=== PATIENT | female | born 1965 | race African-American/Black ===

== ENCOUNTER 2017-12-12 12:31 | Observation (INO) | payer BC, SELFPAY ==
[2017-12-12 13:34] LABS: Mean Corpuscular HGB CONC 32.7 g/dL (32.0-36.0); Mean Corpuscular Hemoglobin 35.9 pg (27.0-31.0); Mean Platelet Volume 7.5 fL (7.4-10.4); Platelet Count 230 thou/uL (130-400); RBC Distribution Width 11.7 % (11.5-14.5); White Blood Cell (WBC) Count 5.4 thou/uL (4.8-10.8)
[2017-12-12 13:38] LABS: Eosinophils 4 % (0-10); Lymphocytes 15 % (21-51); MDiff Complete? YES; Macrocytosis SLIGHT = 6-15 cells (100X) (0-5/hpf); Monocytes 5 % (0-10); Neutrophil 70 % (42-75); PLT Morphology Comment Appears Adequate; Reactive Lymphocytes 6 % (0-10)
[2017-12-12 13:40] LABS: ALT (SGPT) 16 U/L (8-55); AST (SGOT) 21 U/L (5-34); Albumin 4.5 g/dL (3.5-5.0); Alkaline Phosphatase 43 U/L (40-150); Anion Gap 14 mmol/L (10-20); BUN (Urea Nitrogen) 14 mg/dL (9.8-20.1); Bilirubin, Total 0.7 mg/dL (0.2-1.2); CK (CPK) 378 U/L (29-168); Calc. Creatinine Clearance 0 mL/min (70-130); Calcium 9.2 mg/dL (7.8-10.44); Carbon Dioxide 22 mmol/L (22-29); Chloride 109 mmol/L (98-107); Estimated GFR-MDRD 68; Glucose 91 mg/dL (70-105); Potassium 4.2 mmol/L (3.5-5.1); Protein, Total 7.5 g/dL (6.0-8.3); Sodium 141 mmol/L (136-145)
[2017-12-12 13:41] LABS: CKMB 5.5 ng/mL (0-6.6); Troponin I Less than 0.010 ng/mL (< 0.028)
[2017-12-12] MEDS ORDERED: Nitroglycerin 2% Ointment 1 INCH/1 GM Packet ONE (14:46)
--- NOTE | 2017-12-12 15:09 | RAD ---
RADIOGRAPH CHEST 1 VIEW: HISTORY: 52-year-old female with dyspnea and chest pain. FINDINGS: There are no air space densities, pulmonary edema, pneumothorax, or cardiomegaly. The lateral costop hrenic angles are sharp. IMPRESSION: No acute cardiopulmonary findings. jn [] POS: SHERIE
[2017-12-12 15:18] LABS: Bilirubin Negative (Negative); Blood, Urine Negative (Negative); Clarity CLEAR (Clear); Glucose, Urine (Dipstick) Negative (Negative); Leukocyte Trace (Negative); Nitrite Negative (Negative); Protein, Urine (Dipstick) Negative (Neg-Trace); Specific Gravity, Urine 1.028 (1.002-1.036)
[2017-12-12 15:20] LABS: Bacteria/HPF None Seen HPF (None Seen); Hyaline Casts/LPF 0-3 HYALINE CAST LPF (0-3 Hyaline); Pathc Cast-AUWi Flag 0.27 (0-2.49); WBC/HPF 0-3 HPF (0-3)
[2017-12-12] MEDS ORDERED: Mag-Al 1200 mg/1200 mg/30 ML UDCUP PO PRN (15:56)
[2017-12-12] MEDS ORDERED: Ondansetron ODT 4 MG TAB PO PRN (15:56)
[2017-12-12] MEDS ORDERED: Ondansetron HCl/PF 4 MG/2 ML Vial IVP PRN (15:56)
[2017-12-12] MEDS ORDERED: Nitroglycerin 0.4 MG TAB (25 Tab Bottle) PO PRN (15:56)
[2017-12-12] MEDS ORDERED: hydrALAZINE 20 MG/ML VIAL SLOW IVP PRN (15:56)
[2017-12-12] MEDS ORDERED: Acetaminophen 325 MG TAB PO PRN (15:56)
[2017-12-12 15:58] VITALS: BMI 41.3
--- NOTE | 2017-12-12 16:54 | HP ---
The patient is currently in between primary care physician. CHIEF COMPLAINT: Chest pain. HISTORY OF PRESENT ILLNESS: Ms. Hazel is a pleasant 52-year-old female that has a history of rheuma toid arthritis and asthma. She was in her usual state of health until this morning. She says that a bout 7:00 a.m., she threw up and had a bad headache and then she started feeling some sharp pain in h er chest, which then radiated into her left arm. She also felt some tightness in her arm as well. S he says that the pain felt like a sharp warm feeling in her chest and it did radiate to the shoulder and her neck. She says that in the morning it was about 10/10, but now she rates it at about 7/10. She says that she did get some shortness of breath associated with it as well as feeling a bit dizzy and lightheaded, and this is the reason that she came to the ER for evaluation. She also says that s he has been having more shortness of breath recently. She says that she also has sleep propped up at about 40-45 degrees and she says she has been like this for the last couple of years, but lately it has been a little bit worse, and she also says that she occasionally will have to wake up through the night with shortness of breath, but she attributes this to asthma and has to use her "breathing pump ". She also notes some increasing swelling in her legs off and on. The patient also says that she h as never had a stress test. REVIEW OF SYSTEMS: HEENT: She had a headache this morning. She does admit to some sinus drainage and sore throat as we ll as some runny nose. CONSTITUTIONAL: She denies any fevers, chills, night sweats or weight loss. PULMONARY: She has had some dry cough off and on, nonproductive. No hemoptysis. CARDIOVASCULAR: As the history of present illness. GASTROINTESTINAL: She has had the nausea and vomiting this morning. No significant change in bowel other than occasionally constipation alternating with diarrhea. She did say that she has had a colon oscopy about a year ago and they found 1 polyp. GENITOURINARY: No urinary frequency, hematuria, or hesitancy. NEUROLOGIC: No focal weakness or numbness. No seizures. PSYCHIATRIC: No symptoms of anxiety or depression. MUSCULOSKELETAL: No muscle pain, weakness, or joint pains. SKIN AND INTEGUMENT: No skin changes. No rash. PAST MEDICAL HISTORY: Significant for rheumatoid arthritis, asthma, vertigo, and osteoarthritis. ALLERGIES: PENICILLIN. PAST SURGICAL HISTORY: She has had a lipoma removal from her back, hysterectomy, carpal tunnel surge ry, bilateral tubal ligation, ear surgery on the left ear. SOCIAL HISTORY: She is . She has 5 children. 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 She is a nonsmoker, occasionally drinks. She is . FAMILY HISTORY: Significant for diabetes in her mother as well as heart disease, but she is not sure what type of heart disease and systemic lupus in her sister. CURRENT MEDICATIONS: Include Tylenol #3 with codeine, Patanol eyedrops twice a day, albuterol inhale r 2 puffs 4 times a day, Toradol 10 mg as needed for pain, Ultram 50 mg q.6 as needed. PHYSICAL EXAMINATION: GENERAL: She is alert and oriented. She appears to be in no acute distress. VITAL SIGNS: Blood pressure was 121/68, heart rate 98, respiratory rate of 18, temperature is 98.5. HEENT: Pupils are equal, round, and reactive. Extraocular muscles are intact. Sclerae are anicteri c. Throat: No erythema, no exudates. NECK: There is no adenopathy, no bruits, no jugular venous distention. LUNGS: Clear to auscultation. There is no wheezing or rales. CARDIOVASCULAR: She has a normal S1 and S2. I do not appreciate an S3 or S4. No murmurs, clicks or rubs. ABDOMEN: Obese, it is soft, it is nontender, nondistended. There is no appreciable organomegaly. N o rebound or guarding. EXTREMITIES: She has got trace pedal edema bilaterally. Good dorsalis pedis pulses. SKIN/INTEGUMENT: There is no rash. NEUROLOGICALLY: Exam is grossly nonfocal. SIGNIFICANT LABORATORY AND X-RAY FINDINGS: On her EKG, it was sinus rhythm, the rate was 98. There were some nonspecific ST wave changes. LABORATORY DATA: Her white blood cell count was 5.4, hemoglobin 14, hematocrit is 42.9, platelet cou nt is 230. Sodium 141, potassium 4.2, chloride is 109, CO2 is 22, BUN of 14, creatinine 1.03, glucos e is 91. ASSESSMENT AND PLAN: This is a very pleasant 52-year-old female that presents to the emergency room with chest pain, the characteristics of which are bit atypical. As the pain started at rest and has been fairly constant throughout most of the day today. The patient's says who is at the beds [place] says that because of her rheumatoid arthritis, she typically has to use her arms a lot in order t o transfer from a seated position to standing and then also at work she admits to having to carry hea vy buckets full of dishes. I suspect that her chest pain was in some way is reproducible on exam. I suspect that some of her symptoms could be related to musculoskeletal strain. However, she has wihco r had a stress test in the past and this is her second hospital admission for similar complaints (the last being approximately 14 months ago). We will go ahead and place her in observation. Continue t o trend her cardiac enzymes, monitor her blood pressure, check her lipid panel, and she will get a nu clear stress test in the a.m.
[2017-12-12 16:56] LABS: Troponin I Less than 0.010 ng/mL (< 0.028)
[2017-12-12 19:41] LABS: Troponin I Less than 0.010 ng/mL (< 0.028)
[2017-12-12] MEDS: Famotidine 20 MG TAB PO SCH (20:51)
[2017-12-12] MEDS: Nitroglycerin 2% Ointment 1 INCH/1 GM Packet TOP SCH (20:58)
[2017-12-13 04:15] VITALS: BP 132/75; TEMP 98.5
[2017-12-13 04:47] LABS: #Eosinphils 0.1 thou/uL (0.0-0.7); #Lymphocytes 1.7 thou/uL (1.20-3.40); #Monocytes 0.3 thou/uL (0.11-0.59); #Neutrophils 2.4 thou/uL (1.40-6.50); %Basophils 0.9 % (0.0-1.0); %Eosinophils 2.4 % (0.0-10.0); %Lymphocytes 37.5 % (21.0-51.0); %Monocytes 5.9 % (0.0-10.0); %Neutrophils 53.3 % (42.0-75.0); Mean Corpuscular Hemoglobin 36.9 pg (27.0-31.0); Mean Platelet Volume 7.6 fL (7.4-10.4); Platelet Count 201 thou/uL (130-400); RBC Distribution Width 11.7 % (11.5-14.5); Red Blood Cell (RBC) Count 3.51 mill/uL (4.20-5.40); White Blood Cell (WBC) Count 4.6 thou/uL (4.8-10.8)
[2017-12-13] MEDS: Nitroglycerin 2% Ointment 1 INCH/1 GM Packet TOP SCH ×2 (04:58→15:32)
[2017-12-13 05:09] LABS: Anion Gap 12 mmol/L (10-20); BUN (Urea Nitrogen) 18 mg/dL (9.8-20.1); Calc. Creatinine Clearance 154 mL/min (70-130); Calcium 9.3 mg/dL (7.8-10.44); Carbon Dioxide 25 mmol/L (22-29); Cardiac Risk 3.2 (Less than 4.5); Chloride 107 mmol/L (98-107); Cholesterol 163 mg/dl (< 200 Desired); Estimated GFR-MDRD 87; Glucose 92 mg/dL (70-105); HDL Cholesterol 51 mg/dL (>60 Neg Risk); LDL Cholesterol, Calculated 99 mg/dL; Potassium 3.7 mmol/L (3.5-5.1); Sodium 140 mmol/L (136-145); Triglycerides 63 mg/dL (Less than 150)
[2017-12-13] MEDS: Famotidine 20 MG TAB PO SCH (08:38)
[2017-12-13] MEDS ORDERED: Aspirin 325 MG TAB PO SCH (09:00)
[2017-12-13] MEDS ORDERED: Enoxaparin Sodium 40 MG/0.4 ML SYRINGE SC SCH (09:00)
[2017-12-13] MEDS ORDERED: Regadenoson 0.4 MG/5 ML SYRINGE ONE (09:47)
--- NOTE | 2017-12-13 14:04 | NM ---
NUCLEAR MEDICINE CARDIAC MYOCARDIAL PERFUSION SPECT EJECTION FRACTION STUDY WALL MOTION CINE: HISTORY: 52-year-old female with acute chest. TECHNIQUE: Number of days: 1 Rest study: Tc99m sestamibi (Cardiolite) dose: Not given. Stress only study. Pharmacologic stress: Lexiscan dose: 0.4 mg Stress study: Tc99m sestamibi (Cardiolite) dose: 28.3 mCi FINDINGS: Radiopharmaceutical uptake is homogeneous throughout the left ventricular myocardium, without any per fusion defects. EJECTION FRACTION STUDY EF = 52% WALL MOTION CINE Normal. IMPRESSION: Normal. jarocho POS: SHERIE
--- NOTE | 2017-12-13 14:38 | PDOC.PN ---
- Subjective Encounter Start Date: 12/13/17 Encounter Start Time: 14:36 Ms. Hazel was seen in follow-up. She is feeling better, no complaints. - Objective Resuscitation Status: Resuscitation Status FULL:Full Resuscitation MAR Reviewed: Yes Vital Signs & Weight: Vital Signs (12 hours) Temp Pulse Resp BP Pulse Ox 12/13/17 07:45 98.5 F 72 14 12/13/17 07:09 98.4 F 20 12/13/17 04:08 98.5 F 72 14 132/75 95 Weight Weight 277 lb I&O: 12/12/17 12/13/17 12/14/17 06:59 06:59 06:59 Intake Total 710 Output Total 425 500 Balance 285 -500 Result Diagrams: 12/13/17 04:09 12/13/17 04:09 Phys Exam - Physical Examination HEENT: PERRLA Respiratory: no wheezing, no rales, no rhonchi, clear to auscultation bilateral Cardiovascular: RRR, no significant murmur Gastrointestinal: soft, non-tender, positive bowel sounds Musculoskeletal: no edema Dx/Plan (1) Chest pain Code(s): R07.9 - CHEST PAIN, UNSPECIFIED Status: Acute - Plan * Chest pain- - musculoskeletal in origin * Stable for discharge home.
--- NOTE | 2017-12-13 23:51 | DIS ---
PRIMARY CARE PHYSICIAN: She does not have a primary care doctor. DATE OF ADMISSION: 12/12/2017 DATE OF DISCHARGE: 12/13/2017 DISCHARGE DISPOSITION: Home. PRIMARY DISCHARGE DIAGNOSES: 1. Chest pain, probable musculoskeletal in origin. 2. History of rheumatoid arthritis. 3. Asthma. 4. Vertigo. DISCHARGE MEDICATIONS: The patient did not list any medications prior to admission. None will be pr escribed. CODE STATUS: FULL CODE. ALLERGIES: PENICILLIN. PROCEDURES DONE DURING THE ADMISSION: The patient had a nuclear stress test, which was negative. HOSPITAL COURSE: Ms. Hazel is a pleasant 52-year-old female, who presented to the emergency room wi complaints of chest pain, which radiated into her left arm and shoulder and neck. Some of the sym ptoms are reproducible on exam and she did mention that she tends to need to use her arms a lot more than the average person to transfer herself from a seated to standing position, etc. due to severe ar thritis that she experiences in her lower extremities. She also has to lift heavy buckets at work. Her stress test was negative and it is thought that her chest pain is likely muscle strain. Her bloo d pressure was also normal during her hospital stay and her cholesterol level was within normal limit s for someone without history of heart disease with a total cholesterol of 163, LDL of 99 and HDL of 51. Therefore, she will be discharged home and should have close followup with a primary care physic charissa in the area.
== END 2017-12-13 15:41 | disposition home or self-care (01) ==
LOC: ERS 12:31 → EEVIPCON 12:31 → 2SW 14:50
PROVIDERS: ADMIT Internal Medicine; ATTEND Internal Medicine
DX: R07.89 Other chest pain (principal); M06.9 Rheumatoid arthritis, unspecified; J45.909 Unspecified asthma, uncomplicated; R42 Dizziness and giddiness; Z88.0 Allergy status to penicillin; Z79.899 Other long term (current) drug therapy; Z90.710 Acquired absence of both cervix and uterus; Z98.890 Other specified postprocedural states; Z83.3 Family history of diabetes mellitus; Z82.49 Family history of ischemic heart disease and other diseases of the circulatory system
CPT/HCPCS: 36415; 71045; 78452; 80048; 80053; 80061; 81003; 81015; 82553; 84484; 85025; 93005; 93017; 94760; 96372; A9500; G0378; J1650; J2785

== ENCOUNTER 2019-03-08 07:09 | Emergency (ER) | payer SELFPAY ==
[2019-03-08 08:24] LABS: Bilirubin Negative (Negative); Blood, Urine Trace (Negative); Clarity CLOUDY (Clear); Glucose, Urine (Dipstick) Negative (Negative); Leukocyte Small (Negative); Nitrite Negative (Negative); Protein, Urine (Dipstick) Negative (Neg-Trace); Specific Gravity, Urine 1.022 (1.002-1.036); Urobilinogen 0.2 mg/dL (0.2-1.0)
[2019-03-08 08:25] LABS: Bacteria/HPF Rare-Few HPF (None Seen); Hyaline Casts/LPF 0-3 HYALINE CAST LPF (0-3 Hyaline); Pathc Cast-AUWi Flag 0.27 (0-2.49)
--- NOTE | 2019-03-08 08:32 | RAD ---
XR Hip Rt 2-3 View INDICATION: Right hip pain COMPARISON: None FINDINGS: Bones: No acute osseous abnormality. Bone mineralization appears within normal limits. Hip joint: There is moderate right hip osteoarthrosis. SI joints and symphysis pubis: There is mild degenerative change of the right SI joint and symphysis pubis Intrapelvic contents: Visualized bowel gas pattern is within normal limits. Surrounding soft tissues: Radiographically normal. IMPRESSION: 1. No acute osseous abnormality. 2. Moderate right hip osteoarthrosis
--- NOTE | 2019-03-08 08:36 | RAD ---
AP view of the pelvis INDICATION: Right groin pain COMPARISON: None FINDINGS: Bones: No acute fracture or subluxation is evident. Bone mineralization appears within normal limits. Hips: Intact. There is moderate degenerative change of the right and left hip. SI joints and symphysis pubis: There is mild degenerative change of both SI joints and symphysis pubi s. Intrapelvic contents: Within normal limits. IMPRESSION: No acute osseous abnormality.
[2019-03-08] MEDS ORDERED: Ketorolac Tromethamine 60 MG/2 ML VIAL ONE (08:51)
[2019-03-08] MEDS ORDERED: HYDROcodone/Acetaminophen 5/325 mg Tablet ONE (08:51)
[2019-03-08 08:56] LABS: Crystals/HPF 1+ AMORPH URATES HPF (Negative); RBC/HPF 0-3 HPF (0-3)
== END 2019-03-08 09:16 | disposition home or self-care (01) ==
LOC: ERS 07:09
DX: S73.101A Unspecified sprain of right hip, initial encounter (principal); M16.11 Unilateral primary osteoarthritis, right hip; M06.9 Rheumatoid arthritis, unspecified; J45.909 Unspecified asthma, uncomplicated; X50.1XXA Overexertion from prolonged static or awkward postures, initial encounter
CPT/HCPCS: 72170; 81003; 81015; 96372; J1885

== ENCOUNTER 2021-01-01 20:03 | Emergency (ER) | payer SELFPAY ==
[2021-01-01 20:58] LABS: #Eosinphils 0.1 thou/uL (0.0-0.7); #Lymphocytes 1.4 thou/uL (1.20-3.40); #Monocytes 0.3 thou/uL (0.11-0.59); #Neutrophils 8.6 thou/uL (1.40-6.50); %Basophils 0.4 % (0.0-1.0); %Eosinophils 0.6 % (0.0-10.0); %Lymphocytes 13.5 % (21.0-51.0); %Neutrophils 82.5 % (42.0-75.0); Hemoglobin 12.7 g/dL (12.0-16.0); MDiff Complete? YES; Macrocytosis SLIGHT = 6-15 cells (100X) (0-5/hpf); Mean Corpuscular HGB CONC 33.1 g/dL (32.0-36.0); Mean Corpuscular Hemoglobin 36.8 pg (27.0-31.0); Mean Platelet Volume 7.6 fL (7.4-10.4); Platelet Count 235 thou/uL (130-400); RBC Distribution Width 12.3 % (11.5-14.5); Red Blood Cell (RBC) Count 3.45 mill/uL (4.20-5.40); White Blood Cell (WBC) Count 10.4 thou/uL (4.8-10.8)
[2021-01-01 21:12] LABS: ALT (SGPT) 13 U/L (8-55); AST (SGOT) 15 U/L (5-34); Albumin 4.2 g/dL (3.5-5.0); Alkaline Phosphatase 45 U/L (40-110); Anion Gap 10 mmol/L (10-20); BUN (Urea Nitrogen) 16 mg/dL (9.8-20.1); Bilirubin, Total 0.4 mg/dL (0.2-1.2); Calc. Creatinine Clearance 0 mL/min (70-130); Calcium 9.1 mg/dL (7.8-10.44); Carbon Dioxide 26 mmol/L (22-29); Chloride 108 mmol/L (98-107); Globulin 3.4 g/dL (2.4-3.5); Glucose 111 mg/dL (70-105); Lipase 27 U/L (8-78); Potassium 4.3 mmol/L (3.5-5.1); Protein, Total 7.6 g/dL (6.0-8.3); Sodium 140 mmol/L (136-145)
[2021-01-01 23:32] LABS: Bilirubin Negative (Negative); Blood, Urine Negative (Negative); Clarity Clear (Clear); Glucose, Urine (Dipstick) Normal (Negative); Ketone, Urine Negative (Negative); Leukocyte Negative Leu/uL (Negative); Nitrite Negative (Negative); Protein, Urine (Dipstick) Negative (Neg-Trace); Specific Gravity, Urine 1.016 (1.002-1.036); Urobilinogen Normal mg/dL (Less than 2); pH, Urine 7.5 (5.0-9.0)
== END 2021-01-02 00:51 | disposition home or self-care (01) ==
LOC: ERS 20:03
DX: K59.00 Constipation, unspecified (principal); J45.909 Unspecified asthma, uncomplicated; M06.9 Rheumatoid arthritis, unspecified; Z79.899 Other long term (current) drug therapy
CPT/HCPCS: 36415; 80053; 81003; 83690; 85025; 99283